=== PATIENT | male | born 1975 | race Caucasian/White ===

== ENCOUNTER 2018-05-22 16:21 | Inpatient (IN) | payer OTHER ==
[2018-05-22] MEDS ORDERED: NACL 0.9% 3 ML SYG IV (17:30)
[2018-05-22 18:03] LABS: HAAIG REFLEX REFLEX FILED
[2018-05-22 18:05] LABS: WHITE BLOOD COUNT 4.5 10^3/ul (4.8-10.8)
[2018-05-22 18:05] LABS: ABNORMAL IP MESSAGE 1; HEMATOCRIT 31.1 % (42.0-52.0); HEMOGLOBIN 10.1 g/dl (14.0-18.0); MEAN CORPUSCULAR HEMOGLOBIN 29.2 pg (29.0-33.0); MEAN CORPUSCULAR HGB CONC 32.5 g/dl (32.0-37.0); MEAN CORPUSCULAR VOLUME 89.9 fl (82.0-101.0); MEAN PLATELET VOLUME 8.9 fl (7.4-10.4); PLATELET COUNT 180 10^3/UL (140-415); POSITIVE DIFF @See below; RED BLOOD COUNT 3.46 10^6/ul (4.70-6.10)
[2018-05-22 18:15] LABS: ADD MAN DIFF? YES
[2018-05-22 18:22] LABS: ALANINE AMINOTRANSFERASE 13 IU/L (13-69); ALBUMIN 2.5 g/dl (3.3-4.9); ALBUMIN/GLOBULIN RATIO 0.64; ALKALINE PHOSPHATASE 196 IU/L (42-121); ANION GAP 5 (5-13); ASPARTATE AMINO TRANSFERASE 34 IU/L (15-46); BILIRUBIN,INDIRECT 0.4 mg/dl (0-1.1); BILIRUBIN,TOTAL 0.4 mg/dl (0.2-1.3); BLOOD UREA NITROGEN 4 mg/dl (7-20); CARBON DIOXIDE 28 mmol/L (21-31); CHLORIDE 98 mmol/L (97-110); CREATININE 0.46 mg/dl (0.61-1.24); Estimated GFR > 60 mL/min (>60); GLUCOSE 101 mg/dl (70-220); POTASSIUM 3.6 mmol/L (3.5-5.1); SODIUM 131 mmol/L (135-144); TOTAL PROTEIN 6.4 g/dl (6.1-8.1)
[2018-05-22 18:23] LABS: INR 1.27; PROTIME 16.1 Sec (11.9-14.9); PT RATIO 1.3
[2018-05-22] MEDS: HYDROCODONE/APAP (5/325) TAB PO (18:23)
[2018-05-22 19:01] LABS: HEPATITIS B SURFACE ANTIGEN NEGATIVE (NEGATIVE)
[2018-05-22 19:05] LABS: ANISOCYTOSIS 1+ (0-0); BASOPHILS % (M) 2 % (0-2); EOSINOPHILS % (M) 2 % (0-7); GIANT THROMBO% (M) 2 % (0-0); LYMPHOCYTES #M 0.2 10^3/ul (0.8-2.9); LYMPHOCYTES % (M) 5 % (15-51); MONOCYTE #M 0.5 10^3/ul (0.3-0.9); MONOCYTES % (M) 13 % (0-11); PLATELET ESTIMATE NORMAL; POLYCHROMASIA 1+ (0-0); REACTIVE LYMPHOCYTES% (M) 2 % (0-0); SEGMENTED NEUTROPHILS (M) % 76 % (39-77); SMUDGE%M 10 % (0-0)
[2018-05-22 19:20] LABS: HEPATITIS B CORE ANTIBODY NEGATIVE (NEGATIVE); HEPATITIS C VIRAL ANTIBODY NEGATIVE (NEGATIVE)
[2018-05-22] MEDS ORDERED: HEPARIN 5,000 UNIT/0.5 ML VIAL (20:26)
[2018-05-22] MEDS: SPIRONOLACTONE 50 MG TAB PO (20:55)
[2018-05-22] MEDS: DIPHENHYDRAMINE 25 MG CAP PO (20:55)
[2018-05-22] MEDS: HEPARIN SODIUM 5,000 UNIT/ML VIAL SC (21:08)
[2018-05-23 05:21] LABS: ADD MAN DIFF? NO
[2018-05-23 05:32] LABS: ABNORMAL IP MESSAGE 1; BASOPHIL # 0.1 10^3/ul (0.0-0.1); BASOPHILS % 1.1 % (0.0-2.0); EOSINOPHILS # 0.2 10^3/ul (0.0-0.5); EOSINOPHILS % 3.2 % (0.0-7.0); HEMATOCRIT 29.2 % (42.0-52.0); HEMOGLOBIN 9.5 g/dl (14.0-18.0); LYMPHOCYTES # 0.6 10^3/ul (0.8-2.9); LYMPHOCYTES % 10.9 % (15.0-51.0); MEAN CORPUSCULAR HEMOGLOBIN 29.4 pg (29.0-33.0); MEAN CORPUSCULAR HGB CONC 32.5 g/dl (32.0-37.0); MEAN CORPUSCULAR VOLUME 90.4 fl (82.0-101.0); MEAN PLATELET VOLUME 9.5 fl (7.4-10.4); MONOCYTE # 1.1 10^3/ul (0.3-0.9); MONOCYTES % 19.8 % (0.0-11.0); NEUTROPHIL # 3.4 10^3/ul (1.6-7.5); NEUTROPHILS % 64.8 % (39.0-77.0); PLATELET COUNT 187 10^3/UL (140-415); POSITIVE DIFF @See below; RED BLOOD COUNT 3.23 10^6/ul (4.70-6.10); RED CELL DISTRIBUTION WIDTH 16.2 % (11.5-14.5)
[2018-05-23 05:32] LABS: WHITE BLOOD COUNT 5.3 10^3/ul (4.8-10.8)
[2018-05-23 05:54] LABS: ALANINE AMINOTRANSFERASE 8 IU/L (13-69); ALBUMIN 2.5 g/dl (3.3-4.9); ALBUMIN/GLOBULIN RATIO 0.78; ALKALINE PHOSPHATASE 175 IU/L (42-121); ANION GAP 7 (5-13); ASPARTATE AMINO TRANSFERASE 33 IU/L (15-46); BILIRUBIN,INDIRECT 0.5 mg/dl (0-1.1); BILIRUBIN,TOTAL 0.5 mg/dl (0.2-1.3); BLOOD UREA NITROGEN 6 mg/dl (7-20); CALCIUM 8.3 mg/dl (8.4-10.2); CARBON DIOXIDE 28 mmol/L (21-31); CHLORIDE 100 mmol/L (97-110); CREATININE 0.58 mg/dl (0.61-1.24); Estimated GFR > 60 mL/min (>60); GLUCOSE 94 mg/dl (70-220); POTASSIUM 3.9 mmol/L (3.5-5.1); SODIUM 135 mmol/L (135-144); TOTAL PROTEIN 5.7 g/dl (6.1-8.1)
[2018-05-23 05:54] LABS: HEMOGLOBIN A1C 4.8 % (0-5.9)
[2018-05-23] MEDS: LIDOCAINE 1% (MPF) 5 ML VIAL (08:39)
[2018-05-23] MEDS ORDERED: HEPARIN 5,000 UNIT/0.5 ML VIAL ×2 (10:42→20:28)
[2018-05-23] MEDS: SPIRONOLACTONE 50 MG TAB PO ×2 (10:45→20:52)
[2018-05-23] MEDS: FUROSEMIDE 20 MG TAB PO (10:45)
[2018-05-23] MEDS: HEPARIN SODIUM 5,000 UNIT/ML VIAL SC ×2 (10:47→20:55)
[2018-05-23 10:53] LABS: FLD MN% 75.6 %; FLD PMN% 24.4 %; FLD RBC 0 /uL; FLD WBC 78 /cmm
[2018-05-23 11:01] LABS: FLUID TOTAL PROTEIN 2.3 g/dl
[2018-05-23 11:22] LABS: FLD TYPE PARACENTHESIS
[2018-05-23 11:22] LABS: FLD CLARITY SLIGHTLY HAZY; FLD COLOR YELLOW
[2018-05-23] MEDS: HYDROCODONE/APAP (5/325) TAB PO (13:23)
[2018-05-24] MEDS ORDERED: HEPARIN 5,000 UNIT/0.5 ML VIAL (08:31)
[2018-05-24] MEDS: FUROSEMIDE 40 MG TAB PO (09:30)
[2018-05-24] MEDS: SPIRONOLACTONE 50 MG TAB PO (09:30)
[2018-05-24] MEDS: HEPARIN SODIUM 5,000 UNIT/ML VIAL SC (09:39)
[2018-05-24] MEDS: HYDROCODONE/APAP (5/325) TAB PO ×2 (10:41→17:12)
== END 2018-05-24 18:25 | disposition home or self-care (01) | DRG 434 ==
LOC: MS1 16:21
PROC: 0W9G3ZX Drainage of Peritoneal Cavity, Percutaneous Approach, Diagnostic (ICD-10-PCS; principal; 2018-05-23)
DX: K70.31 Alcoholic cirrhosis of liver with ascites (principal); N50.89 Other specified disorders of the male genital organs; D64.9 Anemia, unspecified; K42.9 Umbilical hernia without obstruction or gangrene; F10.20 Alcohol dependence, uncomplicated
CPT/HCPCS: 76705; 76870; 80053; 82042; 83036; 84157; 85025; 85610; 86704; 86709; 86803; 87070; 87102; 87116; 87340; 89051; 97116; 97161

== ENCOUNTER 2018-08-22 10:30 | Inpatient (IN) | payer OTHER ==
[2018-08-22] MEDS: CEFTRIAXONE 1 GM/50 ML (PMX) 50 ML IVPB ×2 (11:22→14:53)
[2018-08-22] MEDS: SOD CHLORIDE 0.9% 500 ML IV (11:22)
[2018-08-22 11:35] LABS: ADD MAN DIFF? NO
[2018-08-22 11:36] LABS: ABNORMAL IP MESSAGE 1; BASOPHIL # 0.1 10^3/ul (0.0-0.1); BASOPHILS % 1.3 % (0.0-2.0); EOSINOPHILS # 0.1 10^3/ul (0.0-0.5); EOSINOPHILS % 2.7 % (0.0-7.0); HEMATOCRIT 32.5 % (42.0-52.0); LYMPHOCYTES # 0.6 10^3/ul (0.8-2.9); LYMPHOCYTES % 12.7 % (15.0-51.0); MEAN CORPUSCULAR HEMOGLOBIN 27.1 pg (29.0-33.0); MEAN CORPUSCULAR HGB CONC 30.8 g/dl (32.0-37.0); MEAN CORPUSCULAR VOLUME 88.1 fl (82.0-101.0); MEAN PLATELET VOLUME 9.9 fl (7.4-10.4); MONOCYTE # 0.6 10^3/ul (0.3-0.9); MONOCYTES % 13.6 % (0.0-11.0); NEUTROPHIL # 3.1 10^3/ul (1.6-7.5); NEUTROPHILS % 69.5 % (39.0-77.0); PLATELET COUNT 182 10^3/UL (140-415); POSITIVE DIFF @See below; RED BLOOD COUNT 3.69 10^6/ul (4.70-6.10); RED CELL DISTRIBUTION WIDTH 18.3 % (11.5-14.5)
[2018-08-22 11:36] LABS: WHITE BLOOD COUNT 4.5 10^3/ul (4.8-10.8)
[2018-08-22 11:44] LABS: ALBUMIN 3.1 g/dl (3.3-4.9); ALBUMIN/GLOBULIN RATIO 0.68; ALKALINE PHOSPHATASE 223 IU/L (42-121); ANION GAP 8 (5-13); ASPARTATE AMINO TRANSFERASE 35 IU/L (15-46); BILIRUBIN,INDIRECT 0.3 mg/dl (0-1.1); BILIRUBIN,TOTAL 0.3 mg/dl (0.2-1.3); BLOOD UREA NITROGEN 12 mg/dl (7-20); CALCIUM 8.7 mg/dl (8.4-10.2); CARBON DIOXIDE 30 mmol/L (21-31); CHLORIDE 104 mmol/L (97-110); CREATININE 0.64 mg/dl (0.61-1.24); Estimated GFR > 60 mL/min (>60); GLUCOSE 100 mg/dl (70-220); SODIUM 142 mmol/L (135-144); TOTAL PROTEIN 7.6 g/dl (6.1-8.1)
[2018-08-22 11:48] LABS: ALANINE AMINOTRANSFERASE < 6 IU/L (13-69)
[2018-08-22 11:50] LABS: PROTIME 15.3 Sec (11.9-14.9); PT RATIO 1.2
[2018-08-22 11:51] LABS: PARTIAL THROMBOPLASTIN TIME 32.7 Sec (23.0-35.0)
[2018-08-22 11:55] LABS: TROPONIN-I < 0.012 ng/ml (0.000-0.120)
[2018-08-22 12:11] LABS: POTASSIUM 3.5 mmol/L (3.5-5.1)
[2018-08-22] MEDS: LIDOCAINE 1% (MPF) 5 ML VIAL (12:31)
[2018-08-22 13:25] LABS: FLUID TYPE PARACENTESIS FLUID
[2018-08-22] MEDS ORDERED: NACL 0.9% 3 ML SYG IV (13:30)
[2018-08-22] MEDS ORDERED: ONDANSETRON 4 MG INJ IV (13:30)
[2018-08-22 13:53] LABS: FLD MN% 78.8 %; FLD PMN% 21.2 %; FLD RBC 0 /uL; FLD WBC 80 /cmm
[2018-08-22 13:55] LABS: FLUID LD 337 U/L; FLUID TOTAL PROTEIN 3.1 g/dl
[2018-08-22 14:00] LABS: FLD TYPE PARACENTESIS
[2018-08-22 14:00] LABS: FLD CLARITY HAZY; FLD COLOR YELLOW
[2018-08-22 14:31] LABS: ADD UMIC YES; UR ASCORBIC ACID NEGATIVE (NEGATIVE); UR BILIRUBIN (Dip) NEGATIVE (NEGATIVE); UR BLOOD (Dip) 2+ mg/dL (NEGATIVE); UR CLARITY CLEAR (CLEAR); UR COLOR YELLOW (YELLOW); UR GLUCOSE (Dip) NEGATIVE (NEGATIVE); UR KETONES (Dip) NEGATIVE (NEGATIVE); UR LEUKOCYTE ESTERASE (Dip) NEGATIVE Leu/ul (NEGATIVE); UR NITRITE (Dip) NEGATIVE (NEGATIVE); UR RBC 16 /HPF (0-5); UR SPECIFIC GRAVITY (Dip) 1.011 (1.003-1.030); UR TOTAL PROTEIN (Dip) 2+ mg/dl (NEGATIVE); UR UROBILINOGEN (Dip) 1+ mg/dL (NEGATIVE); UR WBC 0 /HPF (0-5)
[2018-08-22] MEDS: FUROSEMIDE 40 MG INJ IV (14:53)
[2018-08-22] MEDS: HYDROCODONE/APAP (5/325) TAB PO ×2 (15:43→22:09)
[2018-08-22] MEDS: SPIRONOLACTONE 50 MG TAB PO (18:01)
[2018-08-22] MEDS: FAMOTIDINE 20 MG TAB PO (20:44)
[2018-08-23] MEDS: ACETAMINOPHEN 325 MG TAB PO (02:11)
[2018-08-23] MEDS: SPIRONOLACTONE 50 MG TAB PO (05:29)
[2018-08-23] MEDS: FUROSEMIDE 40 MG INJ IV ×2 (05:29→18:14)
[2018-08-23 05:45] LABS: ADD MAN DIFF? NO
[2018-08-23 05:57] LABS: ABNORMAL IP MESSAGE 1; BASOPHIL # 0.1 10^3/ul (0.0-0.1); BASOPHILS % 1.4 % (0.0-2.0); EOSINOPHILS # 0.1 10^3/ul (0.0-0.5); EOSINOPHILS % 3.7 % (0.0-7.0); HEMOGLOBIN 9.4 g/dl (14.0-18.0); LYMPHOCYTES # 0.5 10^3/ul (0.8-2.9); MEAN CORPUSCULAR HEMOGLOBIN 27.3 pg (29.0-33.0); MEAN CORPUSCULAR HGB CONC 31.3 g/dl (32.0-37.0); MEAN CORPUSCULAR VOLUME 87.2 fl (82.0-101.0); MEAN PLATELET VOLUME 9.2 fl (7.4-10.4); MONOCYTE # 0.7 10^3/ul (0.3-0.9); MONOCYTES % 19.9 % (0.0-11.0); NEUTROPHIL # 2.2 10^3/ul (1.6-7.5); NEUTROPHILS % 60.4 % (39.0-77.0); PLATELET COUNT 158 10^3/UL (140-415); POSITIVE DIFF @See below; RED BLOOD COUNT 3.44 10^6/ul (4.70-6.10); RED CELL DISTRIBUTION WIDTH 18.4 % (11.5-14.5)
[2018-08-23 05:57] LABS: WHITE BLOOD COUNT 3.6 10^3/ul (4.8-10.8)
[2018-08-23 06:15] LABS: ALANINE AMINOTRANSFERASE 9 IU/L (13-69); ALBUMIN 2.6 g/dl (3.3-4.9); ALBUMIN/GLOBULIN RATIO 0.63; ALKALINE PHOSPHATASE 178 IU/L (42-121); ANION GAP 4 (5-13); ASPARTATE AMINO TRANSFERASE 29 IU/L (15-46); BILIRUBIN,INDIRECT 0.2 mg/dl (0-1.1); BILIRUBIN,TOTAL 0.2 mg/dl (0.2-1.3); BLOOD UREA NITROGEN 12 mg/dl (7-20); CALCIUM 8.3 mg/dl (8.4-10.2); CARBON DIOXIDE 30 mmol/L (21-31); CHLORIDE 105 mmol/L (97-110); CHOL/HDL RATIO 2.9 RATIO; CHOLESTEROL 98 mg/dl (100-200); CREATININE 0.58 mg/dl (0.61-1.24); Estimated GFR > 60 mL/min (>60); GLUCOSE 87 mg/dl (70-220); HDL CHOLESTEROL 33 mg/dl (27-67); LDL CHOLESTEROL,CALCULATED 56 mg/dl; MAGNESIUM 1.5 mg/dl (1.7-2.5); POTASSIUM 3.7 mmol/L (3.5-5.1); SODIUM 139 mmol/L (135-144); TOTAL PROTEIN 6.7 g/dl (6.1-8.1); TRIGLYCERIDES 45 mg/dl (0-149)
[2018-08-23 06:44] LABS: HEMOGLOBIN A1C 4.9 % (0-5.9)
[2018-08-23] MEDS: FAMOTIDINE 20 MG TAB PO ×2 (08:38→21:16)
[2018-08-23] MEDS: LACTULOSE 30ML CUP PO (08:38)
[2018-08-23] MEDS: MAGNESIUM SULFATE 2 GM/50 ML 50 ML IVPB (10:44)
[2018-08-23] MEDS: HYDROCODONE/APAP (5/325) TAB PO (14:33)
[2018-08-23] MEDS: CEFTRIAXONE 2 GM/50 ML (PMX) 50 ML IVPB (15:38)
[2018-08-23 16:57] LABS: INR 1.21; PROTIME 15.4 Sec (11.9-14.9); PT RATIO 1.2
[2018-08-24 05:45] LABS: ADD MAN DIFF? NO
[2018-08-24] MEDS: FUROSEMIDE 40 MG INJ IV ×2 (05:51→17:54)
[2018-08-24 06:00] LABS: ABNORMAL IP MESSAGE 1; EOSINOPHILS # 0.1 10^3/ul (0.0-0.5); EOSINOPHILS % 2.7 % (0.0-7.0); HEMATOCRIT 30.2 % (42.0-52.0); HEMOGLOBIN 9.5 g/dl (14.0-18.0); LYMPHOCYTES # 0.5 10^3/ul (0.8-2.9); LYMPHOCYTES % 10.9 % (15.0-51.0); MEAN CORPUSCULAR HEMOGLOBIN 27.6 pg (29.0-33.0); MEAN CORPUSCULAR HGB CONC 31.5 g/dl (32.0-37.0); MEAN CORPUSCULAR VOLUME 87.8 fl (82.0-101.0); MEAN PLATELET VOLUME 9.9 fl (7.4-10.4); MONOCYTE # 0.7 10^3/ul (0.3-0.9); MONOCYTES % 17.4 % (0.0-11.0); NEUTROPHIL # 2.8 10^3/ul (1.6-7.5); NEUTROPHILS % 67.8 % (39.0-77.0); PLATELET COUNT 164 10^3/UL (140-415); POSITIVE DIFF @See below; RED BLOOD COUNT 3.44 10^6/ul (4.70-6.10); RED CELL DISTRIBUTION WIDTH 17.8 % (11.5-14.5)
[2018-08-24 06:00] LABS: WHITE BLOOD COUNT 4.1 10^3/ul (4.8-10.8)
[2018-08-24 06:19] LABS: ANION GAP 8 (5-13); BLOOD UREA NITROGEN 13 mg/dl (7-20); CALCIUM 8.3 mg/dl (8.4-10.2); CARBON DIOXIDE 30 mmol/L (21-31); CHLORIDE 103 mmol/L (97-110); CREATININE 0.61 mg/dl (0.61-1.24); Estimated GFR > 60 mL/min (>60); GLUCOSE 92 mg/dl (70-220); MAGNESIUM 1.7 mg/dl (1.7-2.5); POTASSIUM 3.9 mmol/L (3.5-5.1); SODIUM 141 mmol/L (135-144)
[2018-08-24] MEDS ORDERED: PROPOFOL 200 MG INJ (07:00)
[2018-08-24] MEDS: LACTULOSE 30ML CUP PO (09:00)
[2018-08-24] MEDS: SPIRONOLACTONE 50 MG TAB PO (09:00)
[2018-08-24] MEDS: FAMOTIDINE 20 MG TAB PO ×2 (09:00→20:22)
[2018-08-24] MEDS: CEFTRIAXONE 2 GM/50 ML (PMX) 50 ML IVPB (14:07)
[2018-08-25 05:26] LABS: ADD MAN DIFF? NO
[2018-08-25 05:35] LABS: BASOPHIL # 0.1 10^3/ul (0.0-0.1); BASOPHILS % 1.3 % (0.0-2.0); EOSINOPHILS # 0.1 10^3/ul (0.0-0.5); EOSINOPHILS % 2.4 % (0.0-7.0); HEMATOCRIT 31.4 % (42.0-52.0); HEMOGLOBIN 9.8 g/dl (14.0-18.0); LYMPHOCYTES # 0.7 10^3/ul (0.8-2.9); LYMPHOCYTES % 14.1 % (15.0-51.0); MEAN CORPUSCULAR HEMOGLOBIN 27.1 pg (29.0-33.0); MEAN CORPUSCULAR HGB CONC 31.2 g/dl (32.0-37.0); MEAN PLATELET VOLUME 9.5 fl (7.4-10.4); MONOCYTE # 0.6 10^3/ul (0.3-0.9); MONOCYTES % 13.9 % (0.0-11.0); NEUTROPHIL # 3.1 10^3/ul (1.6-7.5); NEUTROPHILS % 67.7 % (39.0-77.0); PLATELET COUNT 183 10^3/UL (140-415); RED BLOOD COUNT 3.61 10^6/ul (4.70-6.10); RED CELL DISTRIBUTION WIDTH 18.1 % (11.5-14.5)
[2018-08-25 05:35] LABS: WHITE BLOOD COUNT 4.6 10^3/ul (4.8-10.8)
[2018-08-25 05:48] LABS: MAGNESIUM 1.7 mg/dl (1.7-2.5)
[2018-08-25] MEDS: FUROSEMIDE 40 MG INJ IV ×2 (05:55→17:46)
[2018-08-25 06:00] LABS: ALANINE AMINOTRANSFERASE 7 IU/L (13-69); ALBUMIN 2.8 g/dl (3.3-4.9); ALBUMIN/GLOBULIN RATIO 0.66; ALKALINE PHOSPHATASE 183 IU/L (42-121); ANION GAP 2 (5-13); ASPARTATE AMINO TRANSFERASE 27 IU/L (15-46); BILIRUBIN,INDIRECT 0.2 mg/dl (0-1.1); BILIRUBIN,TOTAL 0.2 mg/dl (0.2-1.3); BLOOD UREA NITROGEN 15 mg/dl (7-20); CALCIUM 8.5 mg/dl (8.4-10.2); CARBON DIOXIDE 31 mmol/L (21-31); CHLORIDE 105 mmol/L (97-110); CREATININE 0.67 mg/dl (0.61-1.24); Estimated GFR > 60 mL/min (>60); GLUCOSE 96 mg/dl (70-220); POTASSIUM 3.9 mmol/L (3.5-5.1); SODIUM 138 mmol/L (135-144)
[2018-08-25] MEDS: SPIRONOLACTONE 50 MG TAB PO (08:42)
[2018-08-25] MEDS: FAMOTIDINE 20 MG TAB PO (08:42)
[2018-08-25] MEDS: HYDROCODONE/APAP (5/325) TAB PO (08:42)
[2018-08-25] MEDS: LACTULOSE 30ML CUP PO (08:42)
[2018-08-25] MEDS: PANTOPRAZOLE (EC) 40 MG TAB PO (10:32)
[2018-08-25] MEDS: LEVOFLOXACIN 500 MG TAB PO (17:43)
[2018-08-26] MEDS: LEVOFLOXACIN 500 MG TAB PO (06:00)
[2018-08-26] MEDS: PANTOPRAZOLE (EC) 40 MG TAB PO (06:00)
[2018-08-26] MEDS: FUROSEMIDE 40 MG INJ IV (06:02)
[2018-08-26] MEDS: LACTULOSE 30ML CUP PO (08:30)
[2018-08-26] MEDS: SPIRONOLACTONE 50 MG TAB PO ×2 (08:30→20:31)
[2018-08-26 10:16] LABS: ADD MAN DIFF? NO
[2018-08-26 10:24] LABS: ABNORMAL IP MESSAGE 1; BASOPHIL # 0.1 10^3/ul (0.0-0.1); EOSINOPHILS # 0.1 10^3/ul (0.0-0.5); EOSINOPHILS % 2.6 % (0.0-7.0); HEMATOCRIT 31.5 % (42.0-52.0); HEMOGLOBIN 9.7 g/dl (14.0-18.0); LYMPHOCYTES # 0.4 10^3/ul (0.8-2.9); LYMPHOCYTES % 8.9 % (15.0-51.0); MEAN CORPUSCULAR HEMOGLOBIN 27.1 pg (29.0-33.0); MEAN CORPUSCULAR HGB CONC 30.8 g/dl (32.0-37.0); MEAN PLATELET VOLUME 9.4 fl (7.4-10.4); MONOCYTES % 19.5 % (0.0-11.0); NEUTROPHIL # 3.3 10^3/ul (1.6-7.5); NEUTROPHILS % 67.8 % (39.0-77.0); PLATELET COUNT 208 10^3/UL (140-415); POSITIVE DIFF @See below; RED BLOOD COUNT 3.58 10^6/ul (4.70-6.10); RED CELL DISTRIBUTION WIDTH 17.5 % (11.5-14.5)
[2018-08-26 10:24] LABS: WHITE BLOOD COUNT 4.9 10^3/ul (4.8-10.8)
[2018-08-26 10:46] LABS: ALANINE AMINOTRANSFERASE 8 IU/L (13-69); ALBUMIN 3.1 g/dl (3.3-4.9); ALBUMIN/GLOBULIN RATIO 0.72; ALKALINE PHOSPHATASE 203 IU/L (42-121); ANION GAP 7 (5-13); ASPARTATE AMINO TRANSFERASE 33 IU/L (15-46); BILIRUBIN,INDIRECT 0.2 mg/dl (0-1.1); BILIRUBIN,TOTAL 0.2 mg/dl (0.2-1.3); BLOOD UREA NITROGEN 16 mg/dl (7-20); CALCIUM 8.9 mg/dl (8.4-10.2); CARBON DIOXIDE 31 mmol/L (21-31); CHLORIDE 99 mmol/L (97-110); CREATININE 0.72 mg/dl (0.61-1.24); Estimated GFR > 60 mL/min (>60); GLUCOSE 98 mg/dl (70-220); POTASSIUM 3.8 mmol/L (3.5-5.1); SODIUM 137 mmol/L (135-144); TOTAL PROTEIN 7.4 g/dl (6.1-8.1)
[2018-08-26] MEDS: IOHEXOL 100 ML (22:16)
[2018-08-26] MEDS: IOHEXOL 350MG/ML 50 ML BTL (22:16)
[2018-08-26] MEDS: SOD CHLORIDE 0.9% 100 ML (22:16)
[2018-08-27] MEDS: LEVOFLOXACIN 500 MG TAB PO (05:26)
[2018-08-27] MEDS: PANTOPRAZOLE (EC) 40 MG TAB PO (05:26)
[2018-08-27 05:38] LABS: ADD MAN DIFF? NO
[2018-08-27 05:51] LABS: WHITE BLOOD COUNT 4.4 10^3/ul (4.8-10.8)
[2018-08-27 05:51] LABS: ABNORMAL IP MESSAGE 1; BASOPHILS % 0.9 % (0.0-2.0); EOSINOPHILS # 0.1 10^3/ul (0.0-0.5); EOSINOPHILS % 2.5 % (0.0-7.0); HEMATOCRIT 31.1 % (42.0-52.0); HEMOGLOBIN 9.6 g/dl (14.0-18.0); LYMPHOCYTES # 0.6 10^3/ul (0.8-2.9); LYMPHOCYTES % 12.7 % (15.0-51.0); MEAN CORPUSCULAR HEMOGLOBIN 27.1 pg (29.0-33.0); MEAN CORPUSCULAR HGB CONC 30.9 g/dl (32.0-37.0); MEAN CORPUSCULAR VOLUME 87.9 fl (82.0-101.0); MEAN PLATELET VOLUME 9.9 fl (7.4-10.4); MONOCYTE # 0.8 10^3/ul (0.3-0.9); NEUTROPHIL # 2.9 10^3/ul (1.6-7.5); NEUTROPHILS % 65.4 % (39.0-77.0); PLATELET COUNT 226 10^3/UL (140-415); POSITIVE DIFF @See below; RED BLOOD COUNT 3.54 10^6/ul (4.70-6.10); RED CELL DISTRIBUTION WIDTH 17.6 % (11.5-14.5)
[2018-08-27 06:24] LABS: ANION GAP 9 (5-13); BLOOD UREA NITROGEN 15 mg/dl (7-20); CALCIUM 8.8 mg/dl (8.4-10.2); CARBON DIOXIDE 27 mmol/L (21-31); CHLORIDE 101 mmol/L (97-110); CREATININE 0.69 mg/dl (0.61-1.24); Estimated GFR > 60 mL/min (>60); GLUCOSE 92 mg/dl (70-220); MAGNESIUM 1.8 mg/dl (1.7-2.5); PHOSPHORUS 3.8 mg/dl (2.5-4.9); POTASSIUM 3.8 mmol/L (3.5-5.1); SODIUM 137 mmol/L (135-144)
[2018-08-27] MEDS: LACTULOSE 30ML CUP PO (08:08)
[2018-08-27] MEDS: SPIRONOLACTONE 50 MG TAB PO (08:09)
[2018-08-27] MEDS: LASIX PO (08:51)
[2018-08-27] MEDS ORDERED: FUROSEMIDE 40 MG/4 ML CUP PO (09:00)
[2018-08-27] MEDS ORDERED: NICOTINE (21 MG/24 HR) PATCH TRANSDERM (14:00)
[2018-08-27] MEDS ORDERED: NICOTINE POLACRILEX 2 MG GUM BUCCAL (14:00)
[2018-08-27] MEDS ORDERED: PROPRANOLOL 10 MG TAB PO (21:00)
[2018-08-30 16:16] LABS: ALKALINE PHOSPHATASE 213 U/L (40-115); BONE ISOENZYMES 33 % (28-66); INTESTINAL ISOENZYMES 7 % (1-24); LIVER ISOENZYMES 60 % (25-69); PLACENTAL ISOENZYMES 0 % (0)
== END 2018-08-27 16:25 | disposition home or self-care (01) | DRG 872 ==
LOC: E/R 10:30 → 2NE 15:08
PROC: 0DB68ZX Excision of Stomach, Via Natural or Artificial Opening Endoscopic, Diagnostic (ICD-10-PCS; principal; 2018-08-24 14:25)
PROC: 0W9G30Z Drainage of Peritoneal Cavity with Drainage Device, Percutaneous Approach (ICD-10-PCS; 2018-08-24 14:25)
DX: A41.9 Sepsis, unspecified organism (principal); I85.10 Secondary esophageal varices without bleeding; K76.6 Portal hypertension; K70.31 Alcoholic cirrhosis of liver with ascites; K29.70 Gastritis, unspecified, without bleeding; Z91.14 Patient's other noncompliance with medication regimen; K46.9 Unspecified abdominal hernia without obstruction or gangrene; N50.89 Other specified disorders of the male genital organs; N43.3 Hydrocele, unspecified
CPT/HCPCS: 36415; 71045; 74176; 74178; 76870; 80048; 80053; 80061; 81001; 82105; 83036; 83605; 83615; 83735; 84080; 84100; 84157; 84443; 84484; 85025; 85610; 85730; 87040; 87070; 87086; 87102; 87116; 88104; 88305; 88312; 89051; 93005; 96365; 99285-25

== ENCOUNTER 2018-09-20 08:38 | Inpatient (IN) | payer OTHER ==
[~2018-09-20 08:38] MED LIST: ETOMIDATE 20 MG INJ; SUCCINYLCHOLINE CHLORIDE 100 MG/5 ML SYG IV
[2018-09-20] MEDS ORDERED: PROPOFOL 100 ML (09:12)
[2018-09-20 09:15] LABS: ADD MAN DIFF? NO
[2018-09-20 09:17] LABS: ABNORMAL IP MESSAGE 1; BASOPHILS % 0.3 % (0.0-2.0); HEMATOCRIT 37.9 % (42.0-52.0); HEMOGLOBIN 12.4 g/dl (14.0-18.0); LYMPHOCYTES # 0.2 10^3/ul (0.8-2.9); LYMPHOCYTES % 1.7 % (15.0-51.0); MEAN CORPUSCULAR HEMOGLOBIN 27.1 pg (29.0-33.0); MEAN CORPUSCULAR HGB CONC 32.7 g/dl (32.0-37.0); MEAN CORPUSCULAR VOLUME 82.8 fl (82.0-101.0); MEAN PLATELET VOLUME 10.7 fl (7.4-10.4); MONOCYTE # 1.2 10^3/ul (0.3-0.9); MONOCYTES % 9.8 % (0.0-11.0); NEUTROPHIL # 11.1 10^3/ul (1.6-7.5); NEUTROPHILS % 87.6 % (39.0-77.0); NUCLEATED RED BLOOD CELLS% 0.3 /100WBC (0.0-0.0); PLATELET COUNT 151 10^3/UL (140-415); POSITIVE DIFF @See below; RED BLOOD COUNT 4.58 10^6/ul (4.70-6.10); RED CELL DISTRIBUTION WIDTH 18.6 % (11.5-14.5)
[2018-09-20 09:17] LABS: WHITE BLOOD COUNT 12.7 10^3/ul (4.8-10.8)
[2018-09-20] MEDS: PROPOFOL 100 ML IV ×2 (09:23→14:55)
[2018-09-20 09:37] LABS: ALBUMIN 3.6 g/dl (3.3-4.9); ALKALINE PHOSPHATASE 190 IU/L (42-121); ANION GAP 18 (5-13); ASPARTATE AMINO TRANSFERASE 40 IU/L (15-46); BILIRUBIN,INDIRECT 0.6 mg/dl (0-1.1); BILIRUBIN,TOTAL 0.6 mg/dl (0.2-1.3); BLOOD UREA NITROGEN 40 mg/dl (7-20); CALCIUM 9.1 mg/dl (8.4-10.2); CARBON DIOXIDE 29 mmol/L (21-31); CHLORIDE 87 mmol/L (97-110); CREATININE 2.13 mg/dl (0.61-1.24); Estimated GFR 34 mL/min (>60); GLUCOSE 126 mg/dl (70-220); SODIUM 134 mmol/L (135-144); TOTAL PROTEIN 8.1 g/dl (6.1-8.1)
[2018-09-20 09:51] LABS: ACETAMINOPHEN < 10.0 ug/ml (10.0-30.0); ALANINE AMINOTRANSFERASE < 6 IU/L (13-69); ETHANOL < 10.0 mg/dl (0-0); SALICYLATE < 1.0 mg/dl (5.0-30.0)
[2018-09-20] MEDS ORDERED: ACETAMINOPHEN 325 MG TAB PO (10:30)
[2018-09-20] MEDS ORDERED: ONDANSETRON 4 MG INJ IV (10:30)
[2018-09-20 10:32] LABS: AADO2 Arterial 477.2 mmHg (7.0-24.0); Allen Test ACCEPTAB; Arterial Base Excess 7.3 mmol/L (-3.0-3); Arterial Blood Gas Oxygen Sat 98.8 mmHG (95.0-98.0); Arterial COHb 0.2 % (0.0-3.0); Arterial Fraction of Oxyhgb 98.3 % (93.0-99.0); Arterial HCO3 33.5 mmol/L (22.0-26.0); Arterial MetHb 0.3 % (0.0-1.5); Arterial pCO2 54.6 mmhg (35-45); MODE TRACH COLLAR; Site Right Radial
[2018-09-20] MEDS: SOD CHLORIDE 0.9% 2,040 ML IV (10:32)
[2018-09-20 10:40] LABS: INR 1.25; PROTIME 15.8 Sec (11.9-14.9); PT RATIO 1.2
[2018-09-20 10:41] LABS: AMMONIA 356 umol/l (9-30)
[2018-09-20] MEDS: CEFEPIME 1GM/50 ML (PMX) 50 ML IVPB ×2 (10:42→20:53)
[2018-09-20] MEDS: MIDAZOLAM (DRIP) 50 mg/50 mL 50 ML IV ×2 (11:19→20:08)
[2018-09-20] MEDS ORDERED: NORepinephrine 8MG/250 ML (PMX 250 ML (11:38)
[2018-09-20] MEDS ORDERED: LACTULOSE 30ML CUP NGT (12:00)
[2018-09-20] MEDS: VANCOMYCIN 1 GM (PMX) 250 ML IVPB (12:21)
[2018-09-20] MEDS: NORepinephrine 8MG/250 ML (PMX 250 ML IV (12:55)
[2018-09-20 13:58] LABS: ADD UMIC YES; UR ASCORBIC ACID NEGATIVE (NEGATIVE); UR BACTERIA FEW /HPF (NONE SEEN); UR BILIRUBIN (Dip) 1+ mg/dL (NEGATIVE); UR BLOOD (Dip) 2+ mg/dL (NEGATIVE); UR CLARITY CLOUDY (CLEAR); UR COLOR AMBER (YELLOW); UR GLUCOSE (Dip) NEGATIVE (NEGATIVE); UR KETONES (Dip) TRACE mg/dL (NEGATIVE); UR LEUKOCYTE ESTERASE (Dip) TRACE Leu/ul (NEGATIVE); UR NITRITE (Dip) NEGATIVE (NEGATIVE); UR RBC 23 /HPF (0-5); UR SPECIFIC GRAVITY (Dip) 1.021 (1.003-1.030); UR SQUAMOUS EPITHELIAL CELL FEW /HPF (FEW); UR TOTAL PROTEIN (Dip) 2+ mg/dl (NEGATIVE); UR UROBILINOGEN (Dip) 2+ mg/dL (NEGATIVE); UR WBC 5 /HPF (0-5)
[2018-09-20 14:07] LABS: AMPHETAMINE/METHAMPHETAMINE Negative (NEGATIVE); BARBITURATES Negative (NEGATIVE); BENZODIAZEPINES Negative (NEGATIVE); CANNABINOIDS Negative (NEGATIVE); COCAINE Negative (NEGATIVE); OPIATES Negative (NEGATIVE)
[2018-09-20] MEDS: PHENYLephrine 20MG IN 250 ML 250 ML IV (14:55)
[2018-09-20] MEDS ORDERED: SOD CHLORIDE 0.9% 1,000 ML IV (15:00)
[2018-09-20] MEDS ORDERED: VANCOMYCIN IV PER PHARMACY XX (15:00)
[2018-09-20] MEDS: ALBUMIN HUMAN 25% 50 ML IV ×2 (15:15→23:00)
[2018-09-20] MEDS: SOD CHLORIDE 0.9% 500 ML IV (15:42)
[2018-09-20] MEDS: VASOPRESSIN 60 UNIT in DEXTROSE 5% 57 ML IV ×2 (16:00→19:44)
[2018-09-20] MEDS: PHENYLephrine 80 MG in DEXTROSE 5% 242 ML IV ×2 (16:17→20:33)
[2018-09-20] MEDS: METHYLPREDNISOLONE 125 MG INJ IV (16:40)
[2018-09-20 16:50] LABS: LACTIC ACID 8.1 mmol/L (0.5-2.0)
[2018-09-20 16:51] LABS: LIPASE 178 U/L (23-300)
[2018-09-20 16:51] LABS: CREATINE KINASE 393 IU/L (23-200)
[2018-09-20] MEDS ORDERED: PHENYLephrine 20MG IN 250 ML 250 ML IV (17:00)
[2018-09-20 17:03] LABS: CK INDEX 0.5; CK-MB 1.89 ng/ml (0.0-2.4)
[2018-09-20 17:05] LABS: TROPONIN-I 0.131 ng/ml (0.000-0.120)
[2018-09-20] MEDS: NORepinephrine 32 MG in DEXTROSE 5% 218 ML IV (17:40)
[2018-09-20] MEDS: SOD CHLORIDE 0.9% 1,000 ML IV (17:43)
[2018-09-20] MEDS: ACETAMINOPHEN 650 MG SUPP PR (18:27)
[2018-09-20 20:04] LABS: B-TYPE NATRIURETIC PEPTIDE 894 PG/ML (0-125)
[2018-09-20 21:20] LABS: CREATINE KINASE 333 IU/L (23-200)
[2018-09-20 21:31] LABS: CK INDEX 0.5; CK-MB 1.74 ng/ml (0.0-2.4)
[2018-09-20 21:34] LABS: TROPONIN-I 0.115 ng/ml (0.000-0.120)
[2018-09-20 22:25] LABS: AADO2 Arterial 442.1 mmHg (7.0-24.0); Allen Test ACCEPTAB; Arterial Base Excess 4.4 mmol/L (-3.0-3); Arterial Blood Gas Oxygen Sat 95.4 mmHG (95.0-98.0); Arterial COHb 0 % (0.0-3.0); Arterial HCO3 28.1 mmol/L (22.0-26.0); Arterial MetHb 0.4 % (0.0-1.5); Arterial pCO2 38.9 mmhg (35-45); MODE VENT - AC; Site Right Radial
[2018-09-21] MEDS: SOD CHLORIDE 0.9% 1,000 ML IV ×2 (00:13→15:06)
[2018-09-21] MEDS: PHENYLephrine 80 MG in DEXTROSE 5% 242 ML IV ×5 (00:50→19:41)
[2018-09-21] MEDS: FENTAnyl (DRIP) 1000 mcg/100mL 100 ML IV ×2 (01:26→14:18)
[2018-09-21] MEDS ORDERED: LORAZEPAM 2 MG INJ ×2 (02:58→03:37)
[2018-09-21] MEDS: PROPOFOL 100 ML IV ×2 (03:00→15:00)
[2018-09-21] MEDS: LORAZEPAM 2 MG INJ IV ×6 (03:05→14:24)
[2018-09-21 05:01] LABS: ABNORMAL IP MESSAGE 1; HEMATOCRIT 31.8 % (42.0-52.0); HEMOGLOBIN 10.2 g/dl (14.0-18.0); MEAN CORPUSCULAR HEMOGLOBIN 27.1 pg (29.0-33.0); MEAN CORPUSCULAR HGB CONC 32.1 g/dl (32.0-37.0); MEAN CORPUSCULAR VOLUME 84.6 fl (82.0-101.0); MEAN PLATELET VOLUME 10.9 fl (7.4-10.4); NUCLEATED RED BLOOD CELLS% 0.4 /100WBC (0.0-0.0); PLATELET COUNT 88 10^3/UL (140-415); POSITIVE DIFF @See below; RED BLOOD COUNT 3.76 10^6/ul (4.70-6.10); RED CELL DISTRIBUTION WIDTH 19.9 % (11.5-14.5)
[2018-09-21 05:01] LABS: WHITE BLOOD COUNT 16.8 10^3/ul (4.8-10.8)
[2018-09-21 05:09] LABS: ADD MAN DIFF? YES
[2018-09-21] MEDS: MIDAZOLAM (DRIP) 50 mg/50 mL 50 ML IV ×4 (05:17→21:08)
[2018-09-21] MEDS: NORepinephrine 32 MG in DEXTROSE 5% 218 ML IV ×2 (05:21→21:09)
[2018-09-21 05:22] LABS: ANION GAP 16 (5-13); BLOOD UREA NITROGEN 54 mg/dl (7-20); CARBON DIOXIDE 30 mmol/L (21-31); CHLORIDE 91 mmol/L (97-110); CREATININE 2.77 mg/dl (0.61-1.24); Estimated GFR 25 mL/min (>60); GLUCOSE 133 mg/dl (70-220); PHOSPHORUS 7.1 mg/dl (2.5-4.9); POTASSIUM 3.7 mmol/L (3.5-5.1); SODIUM 137 mmol/L (135-144)
[2018-09-21] MEDS: LEVETIRACETAM 1000 MG (PMX) 100 ML IVPB ×2 (05:22→17:38)
[2018-09-21 05:25] LABS: AMMONIA 413 umol/l (9-30)
[2018-09-21] MEDS: PANTOPRAZOLE 40 MG INJ IV (05:28)
[2018-09-21 05:33] LABS: LACTIC ACID 5.5 mmol/L (0.5-2.0)
[2018-09-21] MEDS: ALBUMIN HUMAN 25% 50 ML IV (06:17)
[2018-09-21] MEDS ORDERED: DOPamine-D5W 1.6 MG/ML 250 ML IV (06:30)
[2018-09-21 07:28] LABS: BAND NEUTROPHILS #M 7.5 10^3/ul (0.0-0.6); BAND NEUTROPHILS % (M) 45 % (0-4); EOSINOPHILS % (M) 1 % (0-7); ERYTHROBLAST% (NRBC) (M) 3 % (0-0); LYMPHOCYTES #M 0.3 10^3/ul (0.8-2.9); LYMPHOCYTES % (M) 2 % (15-51); METAMYELOCYTES %M 12 % (0-0); MONOCYTE #M 0.3 10^3/ul (0.3-0.9); MONOCYTES % (M) 2 % (0-11); MYELOCYTES % (M) 6 % (0-0); PLATELET ESTIMATE DECREASED; POLYCHROMASIA 1+ (0-0); PROMYELOCYTES #M 0.5 10^3/ul (0-0); PROMYELOCYTES % (M) 3 % (0-0); SEG NEUT #M 6.1 10^3/ul (1.6-7.5); SEGMENTED NEUTROPHILS (M) % 29 % (39-77); SMUDGE%M 15 % (0-0); SPHEROCYTES 1+ (0-0)
[2018-09-21] MEDS ORDERED: LEVETIRACETAM 1000 MG (PMX) 100 ML IVPB (09:00)
[2018-09-21] MEDS: PHYTONADIONE 10 MG in DEXTROSE 5% 50 ML IVPB (09:47)
[2018-09-21] MEDS: CEFEPIME 1GM/50 ML (PMX) 50 ML IVPB ×2 (09:47→21:03)
[2018-09-21] MEDS: VANCOMYCIN 1 GM 250 ML IVPB (09:47)
[2018-09-21 11:32] LABS: AADO2 Arterial 423.6 mmHg (7.0-24.0); Allen Test ACCEPTAB; Arterial Base Excess 3.6 mmol/L (-3.0-3); Arterial Blood Gas Oxygen Sat 97.5 mmHG (95.0-98.0); Arterial COHb 0.3 % (0.0-3.0); Arterial MetHb 0.2 % (0.0-1.5); Arterial pCO2 36.7 mmhg (35-45); MODE VENT - AC; Site Right Radial
[2018-09-21] MEDS: LACTATED RINGER'S 1,000 ML IV (11:45)
[2018-09-21] MEDS: ACETAMINOPHEN 650 MG SUPP PR (12:00)
[2018-09-21] MEDS: VASOPRESSIN 60 UNIT in DEXTROSE 5% 57 ML IV (12:30)
[2018-09-21] MEDS: LACTULOSE ENEMA 1,000 ML BTL PR ×2 (14:25→22:10)
[2018-09-21] MEDS: CALCIUM GLUCONATE 10% 2 GM in DEXTROSE 5% 100 ML IVPB (14:25)
[2018-09-21] MEDS: PHENYTOIN 1,000 MG in SOD CHLORIDE 0.9% 100 ML IV (15:06)
[2018-09-21] MEDS: ALBUMIN HUMAN 25% 100 ML IV (16:38)
[2018-09-21] MEDS: SOD CHLORIDE 0.9% 500 ML IV (17:21)
[2018-09-21] MEDS: FUROSEMIDE 40 MG INJ IV (18:23)
[2018-09-21] MEDS: PHENYTOIN 100 MG INJ IV (22:10)
[2018-09-22] MEDS: FENTAnyl (DRIP) 1000 mcg/100mL 100 ML IV ×3 (00:11→19:27)
[2018-09-22] MEDS: PHENYLephrine 80 MG in DEXTROSE 5% 242 ML IV ×5 (00:57→20:22)
[2018-09-22] MEDS: MIDAZOLAM (DRIP) 50 mg/50 mL 50 ML IV ×4 (02:04→19:27)
[2018-09-22] MEDS: PROPOFOL 100 ML IV ×2 (03:00→15:00)
[2018-09-22] MEDS: VASOPRESSIN 60 UNIT in DEXTROSE 5% 57 ML IV ×2 (05:07→16:02)
[2018-09-22 05:13] LABS: WHITE BLOOD COUNT 22.4 10^3/ul (4.8-10.8)
[2018-09-22 05:13] LABS: ABNORMAL IP MESSAGE 1; HEMATOCRIT 28.6 % (42.0-52.0); HEMOGLOBIN 8.9 g/dl (14.0-18.0); MEAN CORPUSCULAR HEMOGLOBIN 27.6 pg (29.0-33.0); MEAN CORPUSCULAR HGB CONC 31.1 g/dl (32.0-37.0); MEAN CORPUSCULAR VOLUME 88.5 fl (82.0-101.0); MEAN PLATELET VOLUME 11.5 fl (7.4-10.4); NUCLEATED RED BLOOD CELLS% 0.3 /100WBC (0.0-0.0); PLATELET COUNT 81 10^3/UL (140-415); POSITIVE DIFF @See below; RED BLOOD COUNT 3.23 10^6/ul (4.70-6.10); RED CELL DISTRIBUTION WIDTH 19.3 % (11.5-14.5)
[2018-09-22 05:46] LABS: ALANINE AMINOTRANSFERASE 149 IU/L (13-69); ALKALINE PHOSPHATASE 81 IU/L (42-121); ANION GAP 22 (5-13); ASPARTATE AMINO TRANSFERASE 529 IU/L (15-46); BILIRUBIN,INDIRECT 0.5 mg/dl (0-1.1); BILIRUBIN,TOTAL 1.9 mg/dl (0.2-1.3); BLOOD UREA NITROGEN 56 mg/dl (7-20); CALCIUM 6.6 mg/dl (8.4-10.2); CARBON DIOXIDE 24 mmol/L (21-31); CHLORIDE 91 mmol/L (97-110); GLUCOSE 147 mg/dl (70-220); PHOSPHORUS 7.7 mg/dl (2.5-4.9); POTASSIUM 3.8 mmol/L (3.5-5.1); SODIUM 137 mmol/L (135-144); TOTAL PROTEIN 6.3 g/dl (6.1-8.1)
[2018-09-22 05:51] LABS: ADD MAN DIFF? YES
[2018-09-22 05:52] LABS: Estimated GFR 32 mL/min (>60); INR 2.29; PROTIME 25.3 Sec (11.9-14.9)
[2018-09-22 05:55] LABS: CREATININE 2.24 mg/dl (0.61-1.24)
[2018-09-22] MEDS: LACTULOSE ENEMA 1,000 ML BTL PR ×3 (06:08→21:38)
[2018-09-22] MEDS: PANTOPRAZOLE 40 MG INJ IV (06:08)
[2018-09-22] MEDS: SOD CHLORIDE 0.9% 1,000 ML IV ×2 (06:08→17:02)
[2018-09-22] MEDS: PHENYTOIN 100 MG INJ IV ×3 (06:08→21:37)
[2018-09-22 09:09] LABS: AADO2 Arterial 307.6 mmHg (7.0-24.0); Allen Test ACCEPTAB; Arterial Base Excess -0.3 mmol/L (-3.0-3); Arterial Blood Gas Oxygen Sat 94.7 mmHG (95.0-98.0); Arterial COHb 0.1 % (0.0-3.0); Arterial Fraction of Oxyhgb 94.5 % (93.0-99.0); Arterial HCO3 23.5 mmol/L (22.0-26.0); Arterial MetHb 0.1 % (0.0-1.5); Arterial pCO2 35.6 mmhg (35-45); MODE VENT - AC; Site Right Radial
[2018-09-22] MEDS: LEVETIRACETAM 500 MG (PMX) 100 ML IVPB ×2 (09:56→20:32)
[2018-09-22] MEDS: CEFEPIME 1GM/50 ML (PMX) 50 ML IVPB ×2 (10:00→20:32)
[2018-09-22 10:16] LABS: ANISOCYTOSIS 1+ (0-0); BAND NEUTROPHILS #M 10.9 10^3/ul (0.0-0.6); BAND NEUTROPHILS % (M) 49 % (0-4); BURR CELLS 1+ (0-0); ERYTHROBLAST% (NRBC) (M) 3 % (0-0); GIANT THROMBO% (M) 2 % (0-0); METAMYELOCYTES #M 1.3 10^3/ul (0.0-0.0); METAMYELOCYTES %M 6 % (0-0); MONOCYTE #M 2.4 10^3/ul (0.3-0.9); MONOCYTES % (M) 11 % (0-11); MYELOCYTES #M 1.1 10^3/ul (0.0-0.0); MYELOCYTES % (M) 5 % (0-0); PLATELET ESTIMATE SIG DECREASED; POIKILOCYTOSIS 1+ (0-0); POLYCHROMASIA 3+ (0-0); PROMYELOCYTES #M 0.2 10^3/ul (0-0); PROMYELOCYTES % (M) 1 % (0-0); SEG NEUT #M 8.7 10^3/ul (1.6-7.5); SEGMENTED NEUTROPHILS (M) % 28 % (39-77); SMUDGE%M 9 % (0-0); TOXIC GRANULATION 3+ (0-0)
[2018-09-22] MEDS: PHYTONADIONE 10 MG in DEXTROSE 5% 50 ML IVPB (10:22)
[2018-09-22 10:35] LABS: RETICULOCYTE RBC 3.18
[2018-09-22 10:35] LABS: RETICULOCYTE COUNT # 0.062 X10^6 (0.020-0.110); RETICULOCYTE COUNT % 1.9 % (0.5-1.5)
[2018-09-22 10:37] LABS: AMMONIA 46 umol/l (9-30)
[2018-09-22 10:38] LABS: LACTATE DEHYDROGENASE 1446 IU/L (313-618)
[2018-09-22 10:39] LABS: IRON 15 ug/dl (35-150)
[2018-09-22 10:45] LABS: LACTIC ACID 6.8 mmol/L (0.5-2.0)
[2018-09-22 10:48] LABS: % IRON SATURATION 7 % SAT (22-52); TOTAL IRON BINDING CAPACITY 224 ug/dl (241-421)
[2018-09-22] MEDS: PHENYTOIN 500 MG in SOD CHLORIDE 0.9% 100 ML IV (12:07)
[2018-09-22] MEDS: HYDROCORTISONE 100 MG INJ IV ×2 (15:08→21:37)
[2018-09-22] MEDS: metroNIDAZOLE 500 MG/NS (PMX) 100 ML IVPB ×2 (15:08→21:38)
[2018-09-22] MEDS: ALBUMIN HUMAN 25% 50 ML IV ×2 (15:09→20:32)
[2018-09-22] MEDS: NORepinephrine 32 MG in DEXTROSE 5% 218 ML IV (15:56)
[2018-09-22] MEDS: PANTOPRAZOLE IV 80 MG in SOD CHLORIDE 0.9% 100 ML IV (17:17)
[2018-09-22] MEDS: OCTREOTIDE 1 MG in DEXTROSE 5% 95 ML IV (17:42)
[2018-09-23] MEDS: PANTOPRAZOLE IV 80 MG in SOD CHLORIDE 0.9% 100 ML IV ×3 (00:29→20:55)
[2018-09-23] MEDS: MIDAZOLAM (DRIP) 50 mg/50 mL 50 ML IV ×4 (00:30→21:30)
[2018-09-23] MEDS: PROPOFOL 100 ML IV ×2 (03:00→14:58)
[2018-09-23] MEDS: NORepinephrine 32 MG in DEXTROSE 5% 218 ML IV ×2 (04:42→20:29)
[2018-09-23] MEDS: VASOPRESSIN 60 UNIT in DEXTROSE 5% 57 ML IV ×2 (04:43→16:00)
[2018-09-23 05:07] LABS: Allen Test ACCEPTAB; Arterial Base Excess -1.9 mmol/L (-3.0-3); Arterial Blood Gas Oxygen Sat 89.5 mmHG (95.0-98.0); Arterial Fraction of Oxyhgb 88.3 % (93.0-99.0); Arterial HCO3 22.6 mmol/L (22.0-26.0); Arterial MetHb 0.3 % (0.0-1.5); Arterial pCO2 37.9 mmhg (35-45); MODE VENT - AC; Site Right Radial
[2018-09-23 05:27] LABS: ABNORMAL IP MESSAGE 1; HEMATOCRIT 29.3 % (42.0-52.0); HEMOGLOBIN 9.4 g/dl (14.0-18.0); MEAN CORPUSCULAR HEMOGLOBIN 27.5 pg (29.0-33.0); MEAN CORPUSCULAR HGB CONC 32.1 g/dl (32.0-37.0); MEAN CORPUSCULAR VOLUME 85.7 fl (82.0-101.0); MEAN PLATELET VOLUME 11.7 fl (7.4-10.4); NUCLEATED RED BLOOD CELLS% 0.9 /100WBC (0.0-0.0); PLATELET COUNT 70 10^3/UL (140-415); POSITIVE DIFF @See below; RED BLOOD COUNT 3.42 10^6/ul (4.70-6.10); RED CELL DISTRIBUTION WIDTH 19.1 % (11.5-14.5)
[2018-09-23 05:27] LABS: WHITE BLOOD COUNT 21.8 10^3/ul (4.8-10.8)
[2018-09-23] MEDS: ALBUMIN HUMAN 25% 50 ML IV ×3 (05:30→20:14)
[2018-09-23] MEDS: HYDROCORTISONE 100 MG INJ IV ×3 (05:31→21:01)
[2018-09-23] MEDS: metroNIDAZOLE 500 MG/NS (PMX) 100 ML IVPB ×3 (05:31→21:31)
[2018-09-23] MEDS: LACTULOSE ENEMA 1,000 ML BTL PR ×3 (05:31→21:01)
[2018-09-23] MEDS: SOD CHLORIDE 0.9% 1,000 ML IV (05:31)
[2018-09-23] MEDS: PHENYTOIN 100 MG INJ IV ×3 (05:31→21:01)
[2018-09-23] MEDS: PHENYLephrine 80 MG in DEXTROSE 5% 242 ML IV ×3 (05:35→20:06)
[2018-09-23 05:45] LABS: PLATELET COUNT 78 10^3/UL (140-415)
[2018-09-23 06:01] LABS: INR 1.58; PT RATIO 1.5
[2018-09-23 06:02] LABS: PARTIAL THROMBOPLASTIN TIME 36.3 Sec (23.0-35.0)
[2018-09-23 06:03] LABS: INR 1.68; PROTIME 19.9 Sec (11.9-14.9); PT RATIO 1.6
[2018-09-23 06:04] LABS: ALANINE AMINOTRANSFERASE 151 IU/L (13-69); ALBUMIN 3.1 g/dl (3.3-4.9); ALBUMIN/GLOBULIN RATIO 0.91; ALKALINE PHOSPHATASE 120 IU/L (42-121); ANION GAP 17 (5-13); ASPARTATE AMINO TRANSFERASE 344 IU/L (15-46); BILIRUBIN,INDIRECT 0.6 mg/dl (0-1.1); BLOOD UREA NITROGEN 69 mg/dl (7-20); CALCIUM 6.1 mg/dl (8.4-10.2); CARBON DIOXIDE 27 mmol/L (21-31); CHLORIDE 94 mmol/L (97-110); GLUCOSE 219 mg/dl (70-220); PARTIAL THROMBOPLASTIN TIME 36.7 Sec (23.0-35.0); SODIUM 138 mmol/L (135-144); TOTAL PROTEIN 6.5 g/dl (6.1-8.1)
[2018-09-23 06:11] LABS: ADD MAN DIFF? YES
[2018-09-23 06:12] LABS: VANCOMYCIN,RANDOM 6.3 ug/ml
[2018-09-23 06:14] LABS: Estimated GFR 50 mL/min (>60)
[2018-09-23 06:15] LABS: THROMBIN TIME 15.5 SEC (13.8-19.1)
[2018-09-23 06:16] LABS: LACTIC ACID 4.9 mmol/L (0.5-2.0)
[2018-09-23 06:16] LABS: CREATININE 1.52 mg/dl (0.61-1.24)
[2018-09-23] MEDS: VANCOMYCIN 1 GM 250 ML IVPB (06:28)
[2018-09-23] MEDS: FENTAnyl (DRIP) 1000 mcg/100mL 100 ML IV ×2 (06:34→20:29)
[2018-09-23 07:00] LABS: MAGNESIUM 2.1 mg/dl (1.7-2.5)
[2018-09-23 07:04] LABS: PHENYTOIN (DILANTIN) 10.9 ug/ml (10.0-20.0)
[2018-09-23 07:50] LABS: ANISOCYTOSIS 1+ (0-0); BAND NEUTROPHILS #M 5.6 10^3/ul (0.0-0.6); BAND NEUTROPHILS % (M) 26 % (0-4); ERYTHROBLAST% (NRBC) (M) 13 % (0-0); GIANT THROMBO% (M) 3 % (0-0); LYMPHOCYTES #M 0.8 10^3/ul (0.8-2.9); LYMPHOCYTES % (M) 4 % (15-51); MONOCYTE #M 1.5 10^3/ul (0.3-0.9); MONOCYTES % (M) 7 % (0-11); PLATELET ESTIMATE SIG DECREASED; POIKILOCYTOSIS 1+ (0-0); POLYCHROMASIA 1+ (0-0); SEGMENTED NEUTROPHILS (M) % 63 % (39-77); SMUDGE%M 15 % (0-0); TOXIC GRANULATION 1+ (0-0)
[2018-09-23] MEDS: LEVETIRACETAM 500 MG (PMX) 100 ML IVPB ×2 (08:34→15:55)
[2018-09-23] MEDS: CEFEPIME 1GM/50 ML (PMX) 50 ML IVPB ×2 (08:34→20:14)
[2018-09-23] MEDS: PHYTONADIONE 10 MG in DEXTROSE 5% 50 ML IVPB (09:17)
[2018-09-23] MEDS: OCTREOTIDE 1 MG in DEXTROSE 5% 95 ML IV (10:23)
[2018-09-23] MEDS: LORAZEPAM 2 MG INJ IV ×9 (10:24→21:57)
[2018-09-23] MEDS: PHENYTOIN 300 MG in SOD CHLORIDE 0.9% 50 ML IV (12:06)
[2018-09-23 12:47] LABS: OCCULT BLOOD STOOL NEGATIVE (NEGATIVE)
[2018-09-23] MEDS: RIFAXIMIN 550 MG TAB NGT ×2 (13:43→20:15)
[2018-09-23] MEDS: LACTULOSE 30ML CUP NGT ×2 (13:43→17:34)
[2018-09-23 14:30] LABS: PHENYTOIN (DILANTIN) 18.1 ug/ml (10.0-20.0)
[2018-09-23] MEDS: CALCIUM GLUCONATE 10% 2 GM in DEXTROSE 5% 100 ML IVPB (17:34)
[2018-09-23] MEDS: LEVETIRACETAM IV 750 MG in DEXTROSE 5% 100 ML IVPB (20:11)
[2018-09-23] MEDS: DIAZEPAM 5 MG/ML SYG IV (22:39)
[2018-09-24] MEDS: LORAZEPAM 2 MG INJ IV ×3 (01:15→07:03)
[2018-09-24] MEDS: LACTULOSE 30ML CUP NGT ×5 (01:17→23:25)
[2018-09-24] MEDS: PROPOFOL 100 ML IV ×4 (02:16→17:42)
[2018-09-24] MEDS: MIDAZOLAM (DRIP) 50 mg/50 mL 50 ML IV ×2 (03:57→08:14)
[2018-09-24] MEDS: VASOPRESSIN 60 UNIT in DEXTROSE 5% 57 ML IV ×2 (04:00→16:00)
[2018-09-24] MEDS: VANCOMYCIN HCL 1.25 GM in SOD CHLORIDE 0.9% 250 ML IVPB (04:08)
[2018-09-24] MEDS: ALBUMIN HUMAN 25% 50 ML IV (05:08)
[2018-09-24] MEDS: HYDROCORTISONE 100 MG INJ IV ×3 (05:09→21:46)
[2018-09-24] MEDS: PHENYTOIN 100 MG INJ IV ×3 (05:09→21:46)
[2018-09-24] MEDS: LACTULOSE ENEMA 1,000 ML BTL PR ×3 (05:09→23:23)
[2018-09-24] MEDS: OCTREOTIDE 1 MG in DEXTROSE 5% 95 ML IV (05:10)
[2018-09-24] MEDS: metroNIDAZOLE 500 MG/NS (PMX) 100 ML IVPB ×3 (05:10→21:46)
[2018-09-24] MEDS: PANTOPRAZOLE IV 80 MG in SOD CHLORIDE 0.9% 100 ML IV (05:10)
[2018-09-24 05:28] LABS: AADO2 Arterial 594.7 mmHg (7.0-24.0); Allen Test ACCEPTAB; Arterial Base Excess -2.8 mmol/L (-3.0-3); Arterial Blood Gas Oxygen Sat 91.9 mmHG (95.0-98.0); Arterial COHb 0.1 % (0.0-3.0); Arterial Fraction of Oxyhgb 91.7 % (93.0-99.0); Arterial MetHb 0.1 % (0.0-1.5); Blood Gas Amplitude 22; MODE VENT - AC; Site Right Radial
[2018-09-24 05:34] LABS: WHITE BLOOD COUNT 26.3 10^3/ul (4.8-10.8)
[2018-09-24 05:34] LABS: ABNORMAL IP MESSAGE 1; HEMATOCRIT 30.5 % (42.0-52.0); HEMOGLOBIN 9.5 g/dl (14.0-18.0); MEAN CORPUSCULAR HEMOGLOBIN 27.2 pg (29.0-33.0); MEAN CORPUSCULAR HGB CONC 31.1 g/dl (32.0-37.0); MEAN CORPUSCULAR VOLUME 87.4 fl (82.0-101.0); MEAN PLATELET VOLUME 12.7 fl (7.4-10.4); NUCLEATED RED BLOOD CELLS% 0.4 /100WBC (0.0-0.0); PLATELET COUNT 56 10^3/UL (140-415); POSITIVE DIFF @See below; RED BLOOD COUNT 3.49 10^6/ul (4.70-6.10); RED CELL DISTRIBUTION WIDTH 18.9 % (11.5-14.5)
[2018-09-24 05:53] LABS: ADD MAN DIFF? YES
[2018-09-24 06:00] LABS: LACTIC ACID 4.9 mmol/L (0.5-2.0); PHOSPHORUS 4.4 mg/dl (2.5-4.9)
[2018-09-24 06:00] LABS: ALANINE AMINOTRANSFERASE 120 IU/L (13-69); ALBUMIN 3.2 g/dl (3.3-4.9); ALKALINE PHOSPHATASE 113 IU/L (42-121); ANION GAP 16 (5-13); ASPARTATE AMINO TRANSFERASE 175 IU/L (15-46); BILIRUBIN,INDIRECT 0.7 mg/dl (0-1.1); BILIRUBIN,TOTAL 2.4 mg/dl (0.2-1.3); BLOOD UREA NITROGEN 82 mg/dl (7-20); CALCIUM 6.7 mg/dl (8.4-10.2); CARBON DIOXIDE 27 mmol/L (21-31); CHLORIDE 97 mmol/L (97-110); CREATININE 1.62 mg/dl (0.61-1.24); Estimated GFR 46 mL/min (>60); GLUCOSE 209 mg/dl (70-220); MAGNESIUM 2.2 mg/dl (1.7-2.5); POTASSIUM 4.5 mmol/L (3.5-5.1); SODIUM 140 mmol/L (135-144); TOTAL PROTEIN 6.4 g/dl (6.1-8.1)
[2018-09-24] MEDS: FENTAnyl (DRIP) 1000 mcg/100mL 100 ML IV (07:02)
[2018-09-24] MEDS: CEFEPIME 1GM/50 ML (PMX) 50 ML IVPB ×2 (08:01→21:46)
[2018-09-24] MEDS: PHYTONADIONE 10 MG in DEXTROSE 5% 50 ML IVPB (08:01)
[2018-09-24] MEDS: RIFAXIMIN 550 MG TAB NGT ×2 (08:01→21:46)
[2018-09-24] MEDS: PHENYLephrine 80 MG in DEXTROSE 5% 242 ML IV (08:10)
[2018-09-24] MEDS: LEVETIRACETAM IV 750 MG in DEXTROSE 5% 100 ML IVPB ×2 (09:10→23:42)
[2018-09-24 09:54] LABS: ANISOCYTOSIS 1+ (0-0); BAND NEUTROPHILS #M 2.3 10^3/ul (0.0-0.6); BAND NEUTROPHILS % (M) 9 % (0-4); ERYTHROBLAST% (NRBC) (M) 2 % (0-0); LYMPHOCYTES #M 0.2 10^3/ul (0.8-2.9); LYMPHOCYTES % (M) 1 % (15-51); MONOCYTE #M 2.6 10^3/ul (0.3-0.9); MONOCYTES % (M) 10 % (0-11); MYELOCYTES #M 0.2 10^3/ul (0.0-0.0); MYELOCYTES % (M) 1 % (0-0); PLATELET ESTIMATE DECREASED; POLYCHROMASIA 1+ (0-0); SEG NEUT #M 21.4 10^3/ul (1.6-7.5); SEGMENTED NEUTROPHILS (M) % 79 % (39-77); SMUDGE%M 4 % (0-0); TOXIC GRANULATION 1+ (0-0)
[2018-09-24] MEDS: CA CHLORIDE 10% 10 ML SYRINGE IV (11:14)
[2018-09-24] MEDS ORDERED: PHENOBARBITAL 65 MG INJ IV (14:00)
[2018-09-24] MEDS: NORepinephrine 32 MG in DEXTROSE 5% 218 ML IV (15:11)
[2018-09-24] MEDS: PANTOPRAZOLE 40 MG INJ IV (17:23)
[2018-09-24 17:42] LABS: PHENYTOIN (DILANTIN) 18.7 ug/ml (10.0-20.0)
[2018-09-25] MEDS: PROPOFOL 100 ML IV ×2 (00:45→10:57)
[2018-09-25] MEDS: OCTREOTIDE 1 MG in DEXTROSE 5% 95 ML IV (00:45)
[2018-09-25] MEDS: VASOPRESSIN 60 UNIT in DEXTROSE 5% 57 ML IV (04:00)
[2018-09-25] MEDS: VANCOMYCIN HCL 1.25 GM in SOD CHLORIDE 0.9% 250 ML IVPB (04:44)
[2018-09-25] MEDS: LACTULOSE ENEMA 1,000 ML BTL PR (05:32)
[2018-09-25] MEDS: HYDROCORTISONE 100 MG INJ IV (05:32)
[2018-09-25] MEDS: LACTULOSE 30ML CUP NGT ×2 (05:32→12:12)
[2018-09-25] MEDS: PANTOPRAZOLE 40 MG INJ IV (05:32)
[2018-09-25] MEDS: PHENYTOIN 100 MG INJ IV (05:32)
[2018-09-25] MEDS: metroNIDAZOLE 500 MG/NS (PMX) 100 ML IVPB (05:32)
[2018-09-25 05:33] LABS: WHITE BLOOD COUNT 24.8 10^3/ul (4.8-10.8)
[2018-09-25 05:33] LABS: ABNORMAL IP MESSAGE 1; HEMATOCRIT 28.8 % (42.0-52.0); HEMOGLOBIN 9.1 g/dl (14.0-18.0); MEAN CORPUSCULAR HEMOGLOBIN 27.3 pg (29.0-33.0); MEAN CORPUSCULAR HGB CONC 31.6 g/dl (32.0-37.0); MEAN CORPUSCULAR VOLUME 86.5 fl (82.0-101.0); NUCLEATED RED BLOOD CELLS% 0.8 /100WBC (0.0-0.0); PLATELET COUNT 67 10^3/UL (140-415); POSITIVE DIFF @See below; RED BLOOD COUNT 3.33 10^6/ul (4.70-6.10); RED CELL DISTRIBUTION WIDTH 18.7 % (11.5-14.5)
[2018-09-25 05:34] LABS: ADD MAN DIFF? YES
[2018-09-25 05:54] LABS: ANION GAP 13 (5-13); BLOOD UREA NITROGEN 88 mg/dl (7-20); CARBON DIOXIDE 29 mmol/L (21-31); CHLORIDE 99 mmol/L (97-110); CREATININE 1.39 mg/dl (0.61-1.24); Estimated GFR 55 mL/min (>60); GLUCOSE 212 mg/dl (70-220); MAGNESIUM 2.4 mg/dl (1.7-2.5); PHOSPHORUS 3.3 mg/dl (2.5-4.9); POTASSIUM 3.8 mmol/L (3.5-5.1); SODIUM 141 mmol/L (135-144)
[2018-09-25 07:16] LABS: AADO2 Arterial 587.4 mmHg (7.0-24.0); Arterial Base Excess 3.5 mmol/L (-3.0-3); Arterial Blood Gas Oxygen Sat 94.3 mmHG (95.0-98.0); Arterial COHb 0.2 % (0.0-3.0); Arterial Fraction of Oxyhgb 93.9 % (93.0-99.0); Arterial HCO3 28.6 mmol/L (22.0-26.0); Arterial MetHb 0.2 % (0.0-1.5); Arterial pCO2 46.1 mmhg (35-45); MODE VENT - AC; Site LB
[2018-09-25] MEDS: LEVETIRACETAM IV 750 MG in DEXTROSE 5% 100 ML IVPB (09:09)
[2018-09-25] MEDS: CEFEPIME 1GM/50 ML (PMX) 50 ML IVPB (09:09)
[2018-09-25] MEDS: RIFAXIMIN 550 MG TAB NGT (09:10)
[2018-09-25 10:09] LABS: ANISOCYTOSIS 1+ (0-0); BAND NEUTROPHILS #M 4.7 10^3/ul (0.0-0.6); BAND NEUTROPHILS % (M) 19 % (0-4); BASOPHIL #M 0.2 10^3/ul (0.0-0.0); BASOPHILS % (M) 1 % (0-2); ERYTHROBLAST% (NRBC) (M) 1 % (0-0); GIANT THROMBO% (M) 6 % (0-0); MONOCYTE #M 2.2 10^3/ul (0.3-0.9); MONOCYTES % (M) 9 % (0-11); MYELOCYTES #M 0.2 10^3/ul (0.0-0.0); MYELOCYTES % (M) 1 % (0-0); OVALOCYTES 1+ (0-0); PLATELET ESTIMATE DECREASED; REACTIVE LYMPHOCYTES #M 0.2 10^3/ul (0.0-0.0); REACTIVE LYMPHOCYTES% (M) 1 % (0-0); SEG NEUT #M 18.3 10^3/ul (1.6-7.5); SEGMENTED NEUTROPHILS (M) % 69 % (39-77); SMUDGE%M 26 % (0-0); TEAR DROP CELLS 1+ (0-0)
[2018-09-25 10:18] LABS: HAPTOGLOBIN 243 mg/dL (43-212)
[2018-09-25] MEDS: morphine 10 MG INJ IV (15:31)
[2018-09-25] MEDS: morphine (DRIP) 100 MG/100 ML 100 ML IV (15:44)
[2018-09-25] MEDS: LORAZEPAM 2 MG INJ IV (16:09)
== END 2018-09-25 16:48 | disposition expired | DRG 870 ==
LOC: E/R 08:38 → ICU 10:08
PROC: 06HY33Z Insertion of Infusion Device into Lower Vein, Percutaneous Approach (ICD-10-PCS; principal; 2018-09-20)
PROC: 5A1955Z Respiratory Ventilation, Greater than 96 Consecutive Hours (ICD-10-PCS; 2018-09-20)
PROC: 0BH18EZ Insertion of Endotracheal Airway into Trachea, Via Natural or Artificial Opening Endoscopic (ICD-10-PCS; 2018-09-20)
DX: A41.9 Sepsis, unspecified organism (principal); R65.21 Severe sepsis with septic shock; J96.00 Acute respiratory failure, unspecified whether with hypoxia or hypercapnia; J69.0 Pneumonitis due to inhalation of food and vomit; N17.0 Acute kidney failure with tubular necrosis; J96.01 Acute respiratory failure with hypoxia; I21.A1 Myocardial infarction type 2; G40.89 Other seizures; E87.1 Hypo-osmolality and hyponatremia; K76.6 Portal hypertension; E87.2 Acidosis; D68.9 Coagulation defect, unspecified; K70.31 Alcoholic cirrhosis of liver with ascites; D63.8 Anemia in other chronic diseases classified elsewhere; N43.3 Hydrocele, unspecified; D69.6 Thrombocytopenia, unspecified; F10.20 Alcohol dependence, uncomplicated; K40.90 Unilateral inguinal hernia, without obstruction or gangrene, not specified as recurrent; K43.9 Ventral hernia without obstruction or gangrene
CPT/HCPCS: 31500; 36415; 36600; 70450; 71045; 76705; 76775; 76937; 80048; 80053; 80185; 80202; 80307; 81001; 82140; 82270; 82550; 82553; 82728; 82803; 83010; 83540; 83605; 83615; 83690; 83735; 83880; 84100; 84443; 84484; 85025; 85045; 85049; 85610; 85670; 85730; 86850; 86900; 86901; 87040; 87081; 87086; 93005; 93306; 94002; 94003; 94770; 95819; 99291-25